=== PATIENT | female | born 1955 | race Hispanic/Latino ===

== ENCOUNTER 2025-05-22 11:09 | Emergency (ER) | payer MEDICARE ==
[2025-05-22] MEDS ORDERED: Acetaminophen 325 MG TAB ONE (12:13)
[2025-05-22] MEDS ORDERED: HYDROcodone/Acetaminophen 5/325 mg Tablet ONE (12:13)
[2025-05-22 12:42] LABS: #Basophils 0.1 thou/uL (0.0-0.2); #Eosinophils 0.0 thou/uL (0.0-0.7); #Lymphocytes 1.3 thou/uL (1.20-3.40); #Monocytes 0.6 thou/uL (0.11-0.59); #Neutrophils 10.4 thou/uL (1.40-6.50); %Basophils 0.7 % (0.0-1.0); %Eosinophils 0.1 % (0.0-10.0); %Lymphocytes 10.7 % (21.0-51.0); %Monocytes 4.6 % (0.0-10.0); %Neutrophils 83.8 % (42.0-75.0); Hematocrit 37.1 % (36.0-47.0); Hemoglobin 12.7 g/dL (12.0-16.0); Mean Corpuscular Hemoglobin 31.6 pg (27.0-31.0); Mean Corpuscular Volume 92.6 fl (78.0-98.0); Platelet Count 319 10x3/uL (130-400); Red Blood Cell (RBC) Count 4.01 mill/uL (4.20-5.40); White Blood Cell (WBC) Count 12.4 10x3/uL (4.8-10.8)
[2025-05-22 13:01] LABS: ALT (SGPT) 15 U/L (Less than 34); AST (SGOT) 26 U/L (11-34); Albumin 3.9 g/dL (3.1-4.5); Alkaline Phosphatase 77 U/L (40-110); Anion Gap 17 mmol/L (10-20); BUN (Urea Nitrogen) 26 mg/dL (9.8-20.1); Bilirubin, Total 0.5 mg/dL (0.3-1.2); Calc. Creatinine Clearance 0 mL/min (70-130); Calcium 9.6 mg/dL (7.8-10.44); Carbon Dioxide 25 mmol/L (23-31); Chloride 104 mmol/L (98-107); Globulin 4.1 g/dL (2.4-3.5); Glucose 109 mg/dL (80-115); Potassium 4.2 mmol/L (3.5-5.1); Sodium 142 mmol/L (136-145)
== END 2025-05-22 13:23 | disposition home or self-care (01) ==
LOC: MADERS 11:09
DX: H81.13 Benign paroxysmal vertigo, bilateral (principal); M25.551 Pain in right hip; I25.10 Atherosclerotic heart disease of native coronary artery without angina pectoris; E11.9 Type 2 diabetes mellitus without complications; I10 Essential (primary) hypertension; E78.5 Hyperlipidemia, unspecified; Z79.84 Long term (current) use of oral hypoglycemic drugs; Z79.899 Other long term (current) drug therapy; W19.XXXA Unspecified fall, initial encounter; Y93.01 Activity, walking, marching and hiking
CPT/HCPCS: 36415; 80053; 85025; 93005; 99284

== ENCOUNTER 2025-06-07 15:16 | Emergency (ER) | payer MEDICARE | END 2025-06-07 16:26 | disposition home or self-care (01) | LOC: MADERS 15:16 | DX: Z00.00 Encounter for general adult medical examination without abnormal findings (principal); Z76.0 Encounter for issue of repeat prescription; I10 Essential (primary) hypertension; I25.10 Atherosclerotic heart disease of native coronary artery without angina pectoris; E11.9 Type 2 diabetes mellitus without complications; E78.5 Hyperlipidemia, unspecified; Z79.899 Other long term (current) drug therapy; Z79.84 Long term (current) use of oral hypoglycemic drugs | CPT/HCPCS: 99281 ==